=== PATIENT | male | born 1935 | race Caucasian/White ===

== ENCOUNTER → 2017-06-05 | Outpatient (CLI) | payer OTHER ==
[~2017-06-05] MED LIST: AMBIEN 5 MG TABL5 M1 PO; AVODART0.5 MG PO; BENTYL20 MG PO; FLOMAX0.4 MG PO; METAMUCIL1 EAC1 PO; MOBIC7.5 MG PO; NEXIUM40 MG PO; NORCO 5-325 TA1 EACH PO; PHILLIPS' COLO1 EACH PO; TRILIPIX135 MG PO; XANAX 0.25 MG0.25 MG PO
== END ==
LOC: RAD 05:56
DX: M47.896 Other spondylosis, lumbar region (principal); M54.16 Radiculopathy, lumbar region; M51.26 Other intervertebral disc displacement, lumbar region

== ENCOUNTER → 2017-06-26 | Outpatient (CLI) | payer OTHER ==
[~2017-06-26] MED LIST changes: +AMBIEN 10 MG TA10 MG PO; -AMBIEN 5 MG TABL5 M1 PO; +CBD OIL; +RAPAFLO8 MG PO
[2017-06-26 09:40] LABS: CREATININE 1.7 mg/dL (0.7-1.3)
== END ==
LOC: CAT 06:40
PROVIDERS: Internal Medicine Gastroenterology
DX: K57.30 Diverticulosis of large intestine without perforation or abscess without bleeding (principal); M47.896 Other spondylosis, lumbar region

== ENCOUNTER → 2017-07-02 | Outpatient (CLI) | payer OTHER ==
[~2017-07-02] VITALS: Ht 172.7 cm; Wt 78.5 kg
--- NOTE | ~2017-07-02 | HPC ---
[facility] [place] [address] PAIN MANAGEMENT CONSULTATION Name: JAYSHREE LAW Room #: REG CHERELLE McclendonKeyona#: [id number] Admission: 07/02/17 Attend Phys: Avinash Hurst DO Discharge: Date of : 34 Report #: [id number] THIS REPORT FOR: //name// CC: Bhavik Hurst DATE OF SERVICE: 07/02/2017 PAIN CLINIC CONSULTATION HISTORY OF PRESENT ILLNESS: The patient is an 81-year-old gentleman seen in consultation at the request of Dr. Kaur for evaluation of pain in the low back, left buttock, hip, lateral leg, component of pain in the left lumbar paravertebral muscles and infracostal margin, tingling going down the left groin and medial thigh into the knee and lower. The patient has taken meloxicam 7.5 one a day (does have chronic kidney disease stage 3), hydrocodone 5/325 with some efficacy. He rates his pain from 5-9 on a VAS. He notes he has poor balance and subjective weakness in the left leg. Describes his pain as rhythmic, periodic, brief, intermittent, momentary, burning, shooting, cramping, aching, pulling, gnawing, throbbing, pounding, sharp, stabbing, and tender. He gets some relief with medication, massage and chiropractic manipulation. The patient notes the pain is exacerbated with bending, lifting and walking. REVIEW OF SYSTEMS: Complete review of systems was attached to chart and gone over with the patient. SOCIAL HISTORY: He is , does not smoke or drink alcohol to excess. He did have a [id number] smoking history, quit many years ago. PAST MEDICAL HISTORY: He does have some ongoing COPD as noted chronic kidney disease stage 3, gastroesophageal reflux, benign prostatic hypertrophy. Chronic depression, but he has been off Zoloft since 2012. MEDICATIONS: Medication list was reconciled was attached to the chart. SURGERY: Includes back surgery in 2007, no recent imaging subsequent to the surgery. The patient is retired. He does maintain 40 acres of land. He continues to be quite physically active. Pain impact score is actually quite low, averaging about 32/70. All other remaining review of systems is noncontributory (negative). [address] [address] PAIN MANAGEMENT CONSULTATION Name: JAYSHREE LAW Room #: REG [facility] Augusto#: [id number] Admission: 07/02/17 Attend Phys: Avinash Hurst DO Discharge: Date of : 34 Report #: [id number] PHYSICAL EXAMINATION: Reveals a 5 feet 8 inches, 172 pounds gentleman, BMI is 26.3 kilograms per meter squared, blood pressure 139/82, pulse 76, respirations 14. Cranial nerves 2-12 are grossly intact. He is hard of hearing. Extraocular muscles are intact. There is no nystagmus. Lateral gaze deviation. Thyroid is unremarkable. Upper extremity strength is generally preserved. Heart is regular and rhythmical without murmur. Lungs are clear to auscultation. Abdomen is benign. He does have some tenderness in the left thoracic paravertebral muscles and along the infracostal margin of left side. Primary pain, however, is in the low back, left buttock and hip. Passive rotation of the hip does not exacerbate pain. He does have positive straight leg raise on the left. Objective decreased left hip flexion strength to extension and left sided dorsiflexion. Patellar reflexes absent on the left, 1/4 on the right. Remaining muscles are 5/5 including all muscles in the right leg. Skin integument is intact. DIAGNOSTIC STUDIES: The patient does have a newer MRI from 06/05/2017. Notes 3 mm retrolisthesis of L5 on S1 with new retrolisthesis of L3 on L4. Does have some facet hypertrophy and impingement of the left L3 nerve root, though this is fairly minor, it does correlate with the patient's subjective symptoms. L4-L5 notes bulging disk and facet hypertrophy changes resulting in some of the patients with bilateral L4 nerve roots. ASSESSMENT: Symptomatic lumbar radiculopathy, clinical exam and history, status post lumbar decompressive laminectomy. RECOMMENDATIONS: 1. Continue meloxicam 7.5 mg 1 a day. 2. Epidural injection with fluoroscopy today, left midline L3-L4. Follow up in 3 weeks for reevaluation. Repeat injection if indicated clinically. Thanks for allowing me to participate in this patient's care. PROCEDURE: Lumbar epidural injection under fluoroscopy. PROCEDURE NOTE: After both written and informed consent to include risk of spinal cord damage, increased pain, weakness and dural puncture, the patient was taken to the fluoroscopy suite, placed in the prone position. After sterile prep and drape, a skin wheal with lidocaine was raised. A 22-gauge epidural Tuohy needle was inserted in the midline at L3-L4 with good loss to resistance. Negative aspiration for cerebrospinal fluid or blood was noted. Then 1 mL of Omnipaque under biplanar fluoroscopy showed good spread within the epidural space. This was followed with 80 mg of triamcinolone plus 1 mL of 1.5% preservative-free Xylocaine, 0.5 mL Xylocaine was then injected to flush the [facility] [address] [place] [address] PAIN MANAGEMENT CONSULTATION Name: JAYSHREE LAW [id number] Admission: 07/02/17 Attend Phys: Avinash Hurst DO Discharge: Date of : 34 Report #: [id number] needle; it was removed. The patient was monitored for an appropriate period of time and discharged in good and stable condition. By: 1120 2221 Avinash Hurst DO /nt
[2017-07-02 10:13] VITALS: BP 139/82
== END | disposition home or self-care (01) ==
LOC: PAIN 07:07
DX: M54.16 Radiculopathy, lumbar region (principal); G89.29 Other chronic pain; J44.9 Chronic obstructive pulmonary disease, unspecified; N18.3 Chronic kidney disease, stage 3 (moderate); N40.1 Benign prostatic hyperplasia with lower urinary tract symptoms; K21.9 Gastro-esophageal reflux disease without esophagitis; F32.89 Other specified depressive episodes; Z79.899 Other long term (current) drug therapy; Z98.890 Other specified postprocedural states; Z87.891 Personal history of nicotine dependence; Z79.891 Long term (current) use of opiate analgesic

== ENCOUNTER → 2017-08-02 | Outpatient (CLI) | payer OTHER ==
[~2017-08-02] VITALS: Ht 172.7 cm; Wt 79.2 kg
--- NOTE | ~2017-08-02 | HPC ---
[facility] [address] [place] [address] PAIN MANAGEMENT CONSULTATION Name: JAYSHREE LAW Room #: REG CHERELLE McclendonKeyona#: [id number] Admission: 08/02/17 Attend Phys: Avinash Hurst DO Discharge: Date of : 34 Report #: [id number] THIS REPORT FOR: //name// CC: Bhavik Hurst The patient is a very pleasant 81-year-old gentleman. I treated some time ago, initially seen in 2007, followed up in 2010 and 2013. Somewhat lost to follow up. He returned to the pain clinic on 07/02/2017. We did an epidural injection at that time. Returns to pain clinic today noting pain has significantly improved, but he still has pain radiating in the left radicular pattern, specifically left hip and low back radiating into the groin and inner thigh. Pain is exacerbated with walking and standing. 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 He does have some acute on chronic rib pain, though this is taken care with his chiropractor. PHYSICAL EXAMINATION: Shows an 81-year-old male, BMI is 26.6 kilograms per meter squared. Vital signs stable as noted in the EMR. Rises from chair using armrest. Modestly antalgic gait. Diffuse tenderness across the low back. Slight decreased left hip flexion strength. Decreased left patellar reflex. ASSESSMENT: Symptomatic lumbar radiculopathy status post decompressive laminectomy with incremental improvement following single epidural injection. RECOMMENDATIONS: Repeat epidural injection under fluoroscopy today. Follow up in 3 weeks for reevaluation and cancel if doing well. PROCEDURE: Midline epidural injection under fluoroscopy. PROCEDURE NOTE: After both written and informed consent to include risk of spinal cord damage, increased pain, weakness and dural puncture, the patient was taken to the fluoroscopy suite, placed in the prone position. After sterile prep and drape, a skin wheal with lidocaine was raised. A 22-gauge epidural Tuohy needle was inserted in the midline at L3-L4 with good loss to resistance. Negative aspiration for cerebrospinal fluid or blood was noted. Then 1 mL of Omnipaque under biplanar fluoroscopy showed good spread within the epidural space. This was followed with 80 mg of triamcinolone plus 1 mL of 1.5% preservative-free Xylocaine, 0.5 mL Xylocaine was then injected to flush the needle; it was removed. The patient was monitored for an appropriate period of time and discharged in good and stable condition. <ELECTRONICALLY SIGNED> By: Avinash Hurst DO 08/02/17 1242 1152 1228 Avinash Hurst DO /nt
[2017-08-02 10:04] VITALS: BP 136/76
== END | disposition home or self-care (01) ==
LOC: PAIN 06:45
DX: M54.16 Radiculopathy, lumbar region (principal); Z68.26 Body mass index [BMI] 26.0-26.9, adult; Z87.891 Personal history of nicotine dependence

== ENCOUNTER → 2017-08-23 | Outpatient (CLI) | payer OTHER ==
[~2017-08-23] VITALS: Ht 172.7 cm; Wt 78.3 kg
--- NOTE | ~2017-08-23 | HPC ---
[facility] [place] [address] PAIN MANAGEMENT CONSULTATION Name: JAYSHREE LAW Room #: REG CHERELLE OhKeyonaTacosKeyona#: [id number] Admission: 08/23/17 Attend Phys: Avinash Hurst DO Discharge: Date of : 34 Report #: [id number] THIS REPORT FOR: //name// CC: Bhavik Hurst DATE OF SERVICE: 08/23/2017 The patient is a very pleasant 81-year-old gentleman I have seen for ongoing radicular symptoms off and on since 2007. Was treated in 2013 and somewhat lost to follow up. He returned this past June with recurrent radicular symptoms. He has had 2 lumbar epidural injections, 07/02/2017 and 08/02/2017. Returns to pain clinic today noting he has had significant improvement of baseline pain, in fact rates his pain fairly nominal today, though notes just this past weekend, he had significant pain, mowing some on his tractor. Pain is in the left lower quadrant radiating into the groin and into the thigh. It is left L3 distribution. He has prior had decompressive laminectomy at L4-L5. PHYSICAL EXAMINATION: Shows pleasant 81-year-old gentleman, BMI is 26.2 kilograms per meter squared. Vital signs show modest hypertension 150/101, pulse 73, respirations 16. Rises from chair using armrest, has an antalgic gait. Left hip flexion strength is diminished. Positive straight leg raise noted on the left with diminished left patellar reflex. We reviewed the MRI from 06/05/2017, has multilevel degenerative changes with multilevel hypertrophic facets in the lumbar spine. He has a new anterolisthesis at L3 on L4, which is concerning. After discussion with the patient today, we have elected to repeat epidural injection under fluoroscopy today at L3-L4, left of midline. Have the patient follow up with Dr. Edi Bhat if this does not significantly ameliorate symptoms, he may unfortunately require a fusion at this L3-L4 level. ASSESSMENT: Symptomatic lumbar radiculopathy status post decompressive laminectomy. PROCEDURE: Lumbar epidural injection under fluoroscopy. PROCEDURE NOTE: After both written and informed consent to include risk of spinal cord damage, increased pain, weakness and dural puncture, the patient was taken to the fluoroscopy suite, placed in the prone position. After sterile prep and drape, a skin wheal with lidocaine was raised. A 22-gauge epidural Tuohy needle was inserted in the midline at L3-L4 with good loss to resistance. Negative aspiration for cerebrospinal fluid or blood was noted. Then 1 mL [address] [address] PAIN MANAGEMENT CONSULTATION Name: JAYSHREE LAW Room #: REG [facility] Augusto#: [id number] Admission: 08/23/17 Attend Phys: Avinash Hurst DO Discharge: Date of : 34 Report #: [id number] Omnipaque under biplanar fluoroscopy showed good spread within the epidural space. This was followed with 80 mg of triamcinolone plus 1 mL of 1.5% preservative-free Xylocaine, 0.5 mL Xylocaine was then injected to flush the needle; it was removed. The patient was monitored for an appropriate period of time and discharged in good and stable condition. <ELECTRONICALLY SIGNED> By: Avinash Hurst DO 08/24/17 0715 1220 1622 Avinash Hurst DO /nt
[2017-08-23 10:50] VITALS: BP 150/101
== END | disposition home or self-care (01) ==
LOC: PAIN 07:08
DX: M54.16 Radiculopathy, lumbar region (principal); G89.29 Other chronic pain; M43.16 Spondylolisthesis, lumbar region; Z87.891 Personal history of nicotine dependence; Z98.890 Other specified postprocedural states; Z79.899 Other long term (current) drug therapy

== ENCOUNTER → 2018-01-04 | Outpatient (CLI) | payer OTHER ==
[~2018-01-04] VITALS: Ht 172.7 cm; Wt 78.5 kg
[2018-01-04 11:23] VITALS: BP 141/89
== END | disposition home or self-care (01) ==
LOC: PAIN 07:24
DX: M54.16 Radiculopathy, lumbar region (principal); G89.29 Other chronic pain; Z87.891 Personal history of nicotine dependence; Z79.899 Other long term (current) drug therapy; Z79.891 Long term (current) use of opiate analgesic